=== PATIENT | female | born 1975 | race Caucasian/White ===

== ENCOUNTER 2016-09-29 08:41 | Emergency (ER) | payer SELFPAY ==
--- NOTE | 2016-09-29 21:26 | RAD ---
RIGHT ELBOW FOUR VIEWS 09/29/16 The patient has an extensive ORIF of prior fractures of the distal humerus and the proximal ulna. A healed fracture of the radial neck is noted as well. While I had no comparison films, This study santos s not suggest any acute fracture. No sign of loosening or infection of the hardware was appreciated. No joint effusion was seen. IMPRESSION: Old postoperative changes but no definite acute finding. POS: HOME
== END 2016-09-29 10:03 | disposition home or self-care (01) ==
LOC: BURERS 08:41
DX: L03.113 Cellulitis of right upper limb (principal); F32.9 Major depressive disorder, single episode, unspecified; F41.9 Anxiety disorder, unspecified; Z79.899 Other long term (current) drug therapy
CPT/HCPCS: 87070; 87077; 87186; 87205; 96372

== ENCOUNTER 2016-12-11 10:25 | Outpatient (CLI) | payer MEDICAID, SELFPAY ==
[2016-12-11 11:39] LABS: #Eosinphils 0.1 thou/uL (0.0-0.7); #Monocytes 0.3 thou/uL (0.11-0.59); #Neutrophils 3.1 thou/uL (1.40-6.50); %Basophils 0.9 % (0.0-1.0); %Eosinophils 1.9 % (0.0-10.0); %Lymphocytes 22.6 % (21.0-51.0); %Monocytes 6.1 % (0.0-10.0); %Neutrophils 68.5 % (42.0-75.0); Hemoglobin 13.1 g/dL (12.0-16.0); Mean Corpuscular HGB CONC 32.5 g/dL (32.0-36.0); Mean Corpuscular Hemoglobin 26.9 pg (27.0-31.0); Mean Platelet Volume 7.8 fL (7.4-10.4); Platelet Count 152 thou/uL (130-400); RBC Distribution Width 14.2 % (11.5-14.5); Red Blood Cell (RBC) Count 4.86 mill/uL (4.20-5.40); White Blood Cell (WBC) Count 4.5 thou/uL (4.8-10.8)
[2016-12-11 11:52] LABS: ALT (SGPT) 6 U/L (8-55); AST (SGOT) 10 U/L (5-34); Albumin 3.8 g/dL (3.5-5.0); Alkaline Phosphatase 52 U/L (40-150); Anion Gap 13 mmol/L (10-20); BUN (Urea Nitrogen) 9 mg/dL (7.0-18.7); Bilirubin, Total 0.5 mg/dL (0.2-1.2); Calc. Creatinine Clearance 0 mL/min (70-130); Calcium 8.8 mg/dL (7.8-10.44); Carbon Dioxide 24 mmol/L (22-29); Chloride 107 mmol/L (98-107); Estimated GFR-MDRD Greater than 90; Globulin 2.9 g/dL (2.4-3.5); Glucose 101 mg/dL (70-105); Potassium 3.5 mmol/L (3.5-5.1); Protein, Total 6.7 g/dL (6.0-8.3); Sodium 140 mmol/L (136-145)
== END 2016-12-11 10:26 | disposition home or self-care (01) ==
LOC: HPCALD 10:25
PROVIDERS: ATTEND Physician Assistant
DX: F41.8 Other specified anxiety disorders (principal)
CPT/HCPCS: 36415; 80053; 84443; 85025

== ENCOUNTER 2016-12-22 14:12 | Outpatient (CLI) | payer MEDICAID | END 2016-12-22 14:13 | disposition home or self-care (01) | LOC: HPCALD 14:12 | PROVIDERS: ATTEND Physician Assistant | DX: L02.413 Cutaneous abscess of right upper limb (principal) | CPT/HCPCS: 87070; 87186; 87205 ==

== ENCOUNTER 2017-12-16 17:05 | Emergency (ER) | payer MEDICAID, OTHER ==
[2017-12-16] MEDS ORDERED: HYDROcodone/Acetaminophen 10/325 mg Tablet ONE (17:33)
== END 2017-12-16 17:37 | disposition home or self-care (01) ==
LOC: BURERS 17:05
DX: M25.521 Pain in right elbow (principal); G89.29 Other chronic pain; F32.9 Major depressive disorder, single episode, unspecified; F41.9 Anxiety disorder, unspecified
CPT/HCPCS: 99283

== ENCOUNTER 2018-01-19 17:37 | Emergency (ER) | payer OTHER ==
[2018-01-19] MEDS ORDERED: Bacitracin Zinc 1 Packet ONE (18:10)
== END 2018-01-19 18:21 | disposition home or self-care (01) ==
LOC: BURERS 17:37
DX: L02.413 Cutaneous abscess of right upper limb (principal); F32.9 Major depressive disorder, single episode, unspecified; Z79.899 Other long term (current) drug therapy
CPT/HCPCS: 10060

== ENCOUNTER 2018-03-24 13:25 | Emergency (ER) | payer OTHER | END 2018-03-24 14:12 | disposition home or self-care (01) | LOC: BURERS 13:25 | DX: L02.413 Cutaneous abscess of right upper limb (principal); F41.9 Anxiety disorder, unspecified; F32.9 Major depressive disorder, single episode, unspecified | CPT/HCPCS: 10060 ==

== ENCOUNTER 2020-02-14 14:22 | Emergency (ER) | payer MEDICARE, OTHER ==
[2020-02-15 12:25] LABS: SARS-CoV-2 MS2 Positive; SARS-CoV-2 N Gene Negative; SARS-CoV-2 S Gene Negative; SARS-CoV-2 by NAA Not Detected (NotDetected); SARS-CoV-2 orf1ab Negative
== END 2020-02-14 14:55 | disposition home or self-care (01) ==
LOC: BURERS 14:22
DX: J02.9 Acute pharyngitis, unspecified (principal); R05 Cough; R50.9 Fever, unspecified; B97.29 Other coronavirus as the cause of diseases classified elsewhere; F41.9 Anxiety disorder, unspecified; F32.9 Major depressive disorder, single episode, unspecified; F17.200 Nicotine dependence, unspecified, uncomplicated; Z79.899 Other long term (current) drug therapy
CPT/HCPCS: 87635; 99283; U0003

== ENCOUNTER 2020-03-17 16:57 | Emergency (ER) | payer MEDICARE, OTHER ==
[2020-03-17] MEDS ORDERED: Lorazepam 0.5 MG TAB ONE ×2 (17:33→19:55)
[2020-03-17 17:41] LABS: #Lymphocytes 1.1 thou/uL (1.20-3.40); #Monocytes 0.3 thou/uL (0.11-0.59); #Neutrophils 4.1 thou/uL (1.40-6.50); %Basophils 0.5 % (0.0-1.0); %Eosinophils 0.6 % (0.0-10.0); %Lymphocytes 19.3 % (21.0-51.0); %Monocytes 5.8 % (0.0-10.0); %Neutrophils 73.8 % (42.0-75.0); Hemoglobin 13.1 g/dL (12.0-16.0); Mean Corpuscular HGB CONC 30.7 g/dL (32.0-36.0); Mean Corpuscular Hemoglobin 26.7 pg (27.0-31.0); Mean Corpuscular Volume 86.8 fL (78.0-98.0); Mean Platelet Volume 8.3 fL (7.4-10.4); Platelet Count 161 thou/uL (130-400); Red Blood Cell (RBC) Count 4.91 mill/uL (4.20-5.40); White Blood Cell (WBC) Count 5.5 thou/uL (4.8-10.8)
[2020-03-17 17:53] LABS: BHCG - Serum Negative (NEGATIVE); Pregs Control Background? CLEAR/WHITE (CLR/WHITE); Pregs Control Bar Appear? YES (CONTROL BAR)
[2020-03-17 17:58] LABS: ALT (SGPT) 13 U/L (8-55); AST (SGOT) 10 U/L (5-34); Albumin 4.1 g/dL (3.5-5.0); Alkaline Phosphatase 62 U/L (40-110); Anion Gap 15 mmol/L (10-20); BUN (Urea Nitrogen) 9 mg/dL (7.0-18.7); Bilirubin, Total 0.3 mg/dL (0.2-1.2); Calc. Creatinine Clearance 0 mL/min (70-130); Calcium 9.1 mg/dL (7.8-10.44); Carbon Dioxide 23 mmol/L (22-29); Chloride 107 mmol/L (98-107); Estimated GFR-MDRD 81; Globulin 2.7 g/dL (2.4-3.5); Glucose 94 mg/dL (70-105); Protein, Total 6.8 g/dL (6.0-8.3); Sodium 141 mmol/L (136-145)
[2020-03-17 17:59] LABS: Acetaminophen Less than 6.0 mcg/mL (10.0-30.0); Alcohol Less than 10 mg/dL (Less than 10); Salicylate Less than 8.0 mg/dL (15.0-30.0)
[2020-03-17 19:10] LABS: Amphetamine Not Detected (NotDetected); Barbiturates Screen Not Detected (NotDetected); Benzodiazepine Screen Detected (NotDetected); Cocaine Metabolite Screen Not Detected (NotDetected); Medtox Control Line Valid? VALID (VALID); Methadone Not Detected (NotDetected); Methamphetamine Not Detected (NotDetected); Opiate Screen Not Detected (NotDetected); Oxycodone Screen Not Detected (NotDetected); Phencyclidine (PCP) Not Detected (NotDetected); THC/Cannabinoid Screen Not Detected (NotDetected); Tricyclic Screen Not Detected (NotDetected)
[2020-03-17] MEDS ORDERED: Ondansetron ODT 4 MG TAB ONE (19:57)
[2020-03-17] MEDS ORDERED: diphenhydrAMINE 25 MG CAP ONE (21:46)
== END 2020-03-17 21:50 ==
LOC: BURERS 16:57
DX: F41.9 Anxiety disorder, unspecified (principal); F32.9 Major depressive disorder, single episode, unspecified; R45.851 Suicidal ideations; Z79.899 Other long term (current) drug therapy; F17.210 Nicotine dependence, cigarettes, uncomplicated
CPT/HCPCS: 36415; 80053; 80306; 80307; 84703; 85025; 99285; Q0162; Q0163

== ENCOUNTER 2021-06-10 07:53 | Emergency (ER) | payer MEDICARE, MEDICAID ==
[2021-06-10 18:10] LABS: SARS-CoV-2 PCR by NAA Not Detected (NotDetected)
== END 2021-06-10 08:29 | disposition home or self-care (01) ==
LOC: BURERS 07:53
DX: B34.9 Viral infection, unspecified (principal); Z20.822 Contact with and (suspected) exposure to COVID-19; Z11.52 Encounter for screening for COVID-19; F17.210 Nicotine dependence, cigarettes, uncomplicated
CPT/HCPCS: U0003; U0005; 99281

== ENCOUNTER 2021-08-10 15:13 | Emergency (ER) | payer MEDICARE, MEDICAID ==
[2021-08-11 15:37] LABS: SARS-CoV-2 PCR by NAA Not Detected (NotDetected)
== END 2021-08-10 16:10 | disposition home or self-care (01) ==
LOC: BURERS 15:13
DX: R50.9 Fever, unspecified (principal); R52 Pain, unspecified; J02.9 Acute pharyngitis, unspecified; R11.0 Nausea; R19.7 Diarrhea, unspecified; R53.83 Other fatigue; R53.81 Other malaise; E66.9 Obesity, unspecified; Z68.45 Body mass index [BMI] 70 or greater, adult; Z20.822 Contact with and (suspected) exposure to COVID-19
CPT/HCPCS: 99283; U0003; U0005

== ENCOUNTER 2023-12-30 07:50 | Inpatient (IN) | payer MEDICARE, MEDICAID ==
[2023-12-30 08:25] LABS: ALT (SGPT) 42 U/L (8-55); AST (SGOT) 37 U/L (5-34); Albumin 3.4 g/dL (3.5-5.0); Alkaline Phosphatase 82 U/L (40-110); Anion Gap 16 mmol/L (10-20); BUN (Urea Nitrogen) 9 mg/dL (7.0-18.7); Bilirubin, Total 0.4 mg/dL (0.2-1.2); Calc. Creatinine Clearance 0 mL/min (70-130); Calcium 8.7 mg/dL (7.8-10.44); Carbon Dioxide 24 mmol/L (22-29); Chloride 108 mmol/L (98-107); Estimated GFR 78; Globulin 3.6 g/dL (2.4-3.5); Glucose 141 mg/dL (70-105); Potassium 3.7 mmol/L (3.5-5.1); Sodium 144 mmol/L (136-145)
[2023-12-30 08:28] LABS: Troponin I Less than 0.010 ng/mL (< 0.028)
[2023-12-30 08:40] LABS: #Neutrophils 7.2 thou/uL (1.40-6.50); %Basophils 0.7 % (0.0-1.0); %Lymphocytes 12.9 % (21.0-51.0); %Monocytes 5.2 % (0.0-10.0); %Neutrophils 76.2 % (42.0-75.0); Hematocrit 34.2 % (36.0-47.0); Hemoglobin 12.2 g/dL (12.0-16.0); Manual Diff?? NO; Mean Corpuscular HGB CONC 35.6 g/dL (32.0-36.0); Mean Corpuscular Hemoglobin 26.7 pg (27.0-31.0); Mean Corpuscular Volume 74.9 fl (78.0-98.0); Mean Platelet Volume 7.2 fL (7.4-10.4); Platelet Count 177 10x3/uL (130-400); RBC Distribution Width 16.4 % (11.5-14.5); Red Blood Cell (RBC) Count 4.56 mill/uL (4.20-5.40); White Blood Cell (WBC) Count 9.5 10x3/uL (4.8-10.8)
[2023-12-30 08:41] LABS: #Basophils 0.1 thou/uL (0.0-0.2); #Eosinphils 0.5 thou/uL (0.0-0.7); #Monocytes 0.5 thou/uL (0.11-0.59); MDiff Complete? YES
[2023-12-30 09:25] LABS: Influenza A by NAA Not Detected (NotDetected); Influenza B by NAA Not Detected (NotDetected); SARS-CoV-2 NAA Rapid Test Not Detected (NotDetected)
[2023-12-30] MEDS: Sodium Chloride 0.9% 100 ML ONE (16:00)
[2023-12-30] MEDS: Azithromycin 500 MG VIAL ONE (16:00)
[2023-12-30] MEDS: Ipratropium/Albuterol 3 ML NEB ONE ×2 (17:09)
[2023-12-30] MEDS: methylPREDNISolone Sod Succ/PF 125 MG/2 ML VIAL ONE (17:09)
[2023-12-30] MEDS: Morphine 4 MG/ML VIAL ONE (17:10)
[2023-12-30] MEDS: Acetaminophen 500 MG TAB ONE (17:10)
[2023-12-30] MEDS: cefTRIAXone (ROCEPHIN) 1 GM VIAL ONE (17:10)
[2023-12-30] MEDS: Doxycycline 100 MG CAP ONE (17:10)
[2023-12-30] MEDS: Morphine 2 MG/ML VIAL ONE (17:11)
[2023-12-30] MEDS: Ipratropium/Albuterol 3 ML NEB NEB SCH (17:14)
[2023-12-30] MEDS: Acetaminophen 325 MG TAB PO PRN (18:00)
[2023-12-30] MEDS: Guaifenesin DM 100-10/5 ML UDCUP PO PRN (18:01)
[2023-12-30] MEDS: Nicotine 14 MG PATCH TD SCH (18:03)
[2023-12-30 18:08] VITALS: BMI 42.2
[2023-12-30] MEDS: Ibuprofen 800 MG TAB PO PRN (21:11)
[2023-12-30] MEDS: Mirtazapine 15 MG TAB PO SCH (21:12)
[2023-12-30] MEDS: Gabapentin 300 MG CAP PO SCH (21:13)
[2023-12-30] MEDS: Benzonatate 100 MG CAP PO SCH (21:13)
[2023-12-30] MEDS: clonazePAM 0.5 MG TAB PO PRN (22:08)
[2023-12-30] MEDS: PRAZOSIN HCL 1 MG PO SCH (22:09)
[2023-12-31] MEDS: Benzonatate 100 MG CAP PO PRN (05:39)
[2023-12-31] MEDS: cefTRIAXone\\ROCEPHIN 1 GM in Sodium Chloride 0.9% 100 ML IVPB SCH (08:40)
[2023-12-31] MEDS: methylPREDNISolone Sod Succ/PF 125 MG/2 ML VIAL IVP SCH (08:42)
[2023-12-31] MEDS: Escitalopram Oxalate 10 mg Tablet PO SCH (08:42)
[2023-12-31] MEDS ORDERED: Meloxicam 7.5 MG TAB PO SCH (09:00)
[2023-12-31] MEDS: Ipratropium/Albuterol 3 ML NEB NEB PRN (09:01)
[2023-12-31] MEDS: Vancomycin 1 GM in Sodium Chloride 0.9% 250 ML 250 ML IVPB SCH ×2 (09:39→12:36)
[2023-12-31] MEDS: Vancomycin HCl 500 MG in Sodium Chloride 0.9% 250 ML 250 ML IVPB SCH (11:17)
[2023-12-31] MEDS: Vancomycin 1 GM in Sodium Chloride 0.9% 100 ML IVPB SCH (20:28)
[2024-01-01 05:19] LABS: Vancomycin, Random 10.7 ug/mL (See Comment)
[2024-01-01] MEDS ORDERED: Albuterol 2.5 MG (3 mL) NEB NEB SCH ×2 (11:45→15:00)
[2024-01-01] MEDS: Albuterol 200 PUFF (6.7GM INHALER) INH SCH (13:10)
[2024-01-01] MEDS: Vancomycin 1 GM in Sodium Chloride 0.9% 100 ML IVPB SCH (16:52)
[2024-01-01] MEDS: Loperamide HCl 2 MG CAP PO PRN (20:31)
[2024-01-01] MEDS: Benzocaine/Menthol 1 LOZ LOZ PO PRN (20:32)
[2024-01-01] MEDS: Albuterol 200 PUFF (6.7GM INHALER) INH PRN (20:35)
[2024-01-02] MEDS: Vancomycin 1 GM in Sodium Chloride 0.9% 250 ML 250 ML IVPB SCH (00:45)
[2024-01-02 05:17] LABS: Anion Gap 10 mmol/L (10-20); BUN (Urea Nitrogen) 12 mg/dL (7.0-18.7); Calc. Creatinine Clearance 179 mL/min (70-130); Carbon Dioxide 23 mmol/L (22-29); Chloride 113 mmol/L (98-107); Estimated GFR 107; Glucose 180 mg/dL (70-105); Potassium 3.4 mmol/L (3.5-5.1); Sodium 143 mmol/L (136-145); Vancomycin, Random 19.9 ug/mL (See Comment)
[2024-01-02 05:39] LABS: Hematocrit 27.3 % (36.0-47.0); Hemoglobin 9.5 g/dL (12.0-16.0); Mean Corpuscular HGB CONC 34.9 g/dL (32.0-36.0); Mean Corpuscular Hemoglobin 26.2 pg (27.0-31.0); Mean Platelet Volume 6.6 fL (7.4-10.4); Platelet Count 202 10x3/uL (130-400); RBC Distribution Width 16.2 % (11.5-14.5); Red Blood Cell (RBC) Count 3.64 mill/uL (4.20-5.40); White Blood Cell (WBC) Count 5.9 10x3/uL (4.8-10.8)
[2024-01-02 05:56] LABS: Anisocytosis SLIGHT = 6-15 cells (100X) (0-5/hpf); Lymphocytes 25 % (21-51); MDiff Complete? YES; Monocytes 10 % (0-10); Neutrophil 65 % (42-75); Platelet Adequacy Comment Appears Adequate
[2024-01-02] MEDS: Potassium Chloride 20 MEQ TAB PO SCH (09:58)
[2024-01-02 15:43] VITALS: BP 128/78; TEMP 98.2
== END 2024-01-02 15:00 | disposition home or self-care (01) | DRG 195 ==
LOC: BURERS 07:50 → BURMED 15:09
PROVIDERS: ADMIT Family Medicine; ATTEND Nurse Practitioner
DX: J18.9 Pneumonia, unspecified organism (principal); Z88.0 Allergy status to penicillin; Z88.2 Allergy status to sulfonamides; Z79.899 Other long term (current) drug therapy; F43.10 Post-traumatic stress disorder, unspecified; F32.9 Major depressive disorder, single episode, unspecified; Z98.890 Other specified postprocedural states; Z87.891 Personal history of nicotine dependence
CPT/HCPCS: 36415; 71045; 71250; 80048; 80053; 80202; 82565; 83605; 83880; 84484; 85025; 87040; 87081; 93005; 94760; J0456; J0696; J2272; J2930; J3370; J7050; J7620